=== PATIENT | male | born 1965 | race Caucasian/White ===

== ENCOUNTER 2024-11-15 15:59 | Outpatient (CLI) | payer OTHER | END 2024-11-15 16:00 | disposition home or self-care (01) | LOC: BICCT 15:59 | PROVIDERS: ATTEND Internal Medicine Cardiovascular Disease | DX: Z13.6 Encounter for screening for cardiovascular disorders (principal); R00.2 Palpitations; I70.90 Unspecified atherosclerosis | CPT/HCPCS: 75571 ==